=== PATIENT | male | born 1970 | race African-American/Black ===

== ENCOUNTER 2016-09-05 10:15 | Emergency (ER) | payer OTHER ==
[2016-09-05 10:15] LABS: URINE SOURCE CLEAN CATCH
[~2016-09-05 10:15] MED LIST: AMLODIPINE BESYL5 MG PO; ASPIRIN81 M2 PO; MEDI-MECLIZINE25 M1 PO; NITRIC OXIDE
[2016-09-05 10:27] LABS: URINE APPEARANCE CLEAR; URINE BILIRUBIN NEG (NEG); URINE BLOOD NEG (NEG); URINE COLOR YELLOW; URINE GLUCOSE NEG (NORM); URINE KETONE NEG (NEG); URINE LEUKOCYTE ESTERASE NEG (NEG); URINE NITRATE NEG (NEG); URINE PH 7.5 (5-8); URINE PROTEIN NEG (NEG); URINE UROBILINOGEN 0.2 MG/DL (NORM)
[2016-09-05 10:29] LABS: MICRO INDICATED? NO
[2016-09-08 15:49] LABS: CHLAMYDIA TRACH Not Detected (Not Detected); N GONOR Not Detected (Not Detected)
== END 2016-09-05 11:36 | disposition home or self-care (01) ==
LOC: SED 10:15
PROVIDERS: Emergency Medicine
DX: N34.2 Other urethritis (principal); Z79.899 Other long term (current) drug therapy; Z79.82 Long term (current) use of aspirin
CPT/HCPCS: 81003; 87491; 87591; 96372; 99283; J0696

== ENCOUNTER 2016-10-07 03:23 | Emergency (ER) | payer OTHER ==
[2016-10-07 04:17] LABS: URINE SOURCE CLEAN CATCH
[2016-10-07 04:20] LABS: URINE APPEARANCE CLEAR; URINE BILIRUBIN NEG (NEG); URINE BLOOD NEG (NEG); URINE COLOR YELLOW; URINE GLUCOSE NEG (NORM); URINE KETONE NEG (NEG); URINE LEUKOCYTE ESTERASE NEG (NEG); URINE NITRATE NEG (NEG); URINE PROTEIN NEG (NEG); URINE SPECIFIC GRAVITY <=1.005 (1.003-1.035); URINE UROBILINOGEN 0.2 MG/DL (NORM)
[2016-10-07 04:23] LABS: MICRO INDICATED? NO
== END 2016-10-07 05:00 | disposition home or self-care (01) ==
LOC: SED 03:23
PROVIDERS: Emergency Medicine
DX: R30.0 Dysuria (principal); I10 Essential (primary) hypertension; Z79.899 Other long term (current) drug therapy; Z79.82 Long term (current) use of aspirin
CPT/HCPCS: 81003; 99283

== ENCOUNTER 2017-02-06 07:48 | Emergency (ER) | payer SELFPAY ==
[~2017-02-06] VITALS: Ht 175.3 cm; Wt 84.8 kg
[2017-02-06 08:37] LABS: BASOPHIL# 0.1 X10e3 (0-0.3); BASOPHIL% 1.2 % (0-2.5); EOSINOPHIL# 0.1 X10e3 (0-0.7); EOSINOPHIL% 1.7 % (0.0-7.0); HEMATOCRIT 43.9 % (38.0-50.0); HEMOGLOBIN 14.9 gm/dL (13.0-16.0); LYMPHOCYTE# 1.1 X10e3 (1.0-3.5); LYMPHOCYTE% 20.6 % (17.0-45.0); MEAN CORPUSCULAR HEMOGLOBIN 31.6 PG (28-34); MEAN PLATELET VOLUME 8.1 FL (6.5-11.5); MONOCYTE# 0.4 X10e3 (0-1.0); MONOCYTE% 7.1 % (3.0-12.0); NEUTROPHIL# 3.8 X10e3 (1.5-7.1); NEUTROPHIL% 69.4 % (40-75); PLATELET COUNT 181 X10e3 (140-420); RED BLOOD COUNT 4.71 X10e (3.90-5.60); RED CELL DISTRIBUTION WIDTH 13.8 % (11.0-15.5); WHITE BLOOD COUNT 5.4 X10e3 (4.0-10.5)
[2017-02-06 08:40] LABS: DIFF IND NO
[2017-02-06 08:55] LABS: ALBUMIN SERUM 4.4 g/dL (3.5-5.0); BILIRUBIN, DIRECT 0.1 mg/dL (0.0-0.2); BILIRUBIN,INDIRECT 0.7 mg/dL (0.0-0.9); BILIRUBIN,TOTAL 0.8 mg/dL (0.2-2.0); BUN/CREATININE RATIO 12.14; CALCIUM SERUM 8.5 mg/dL (8.4-10.2); CREATININE SERUM 1.4 mg/dL (0.6-1.4); GLOM FILT RATE Estimated 69.9 mL/min (>60); POTASSIUM 3.9 mmol/L (3.5-5.1); PROTEIN TOTAL SERUM 7.6 g/dL (6.0-8.3)
== END 2017-02-06 09:19 | disposition home or self-care (01) ==
LOC: SED 07:48
PROVIDERS: Emergency Medicine
DX: A08.4 Viral intestinal infection, unspecified (principal); I10 Essential (primary) hypertension; Z87.891 Personal history of nicotine dependence; Z79.899 Other long term (current) drug therapy; Z79.82 Long term (current) use of aspirin
CPT/HCPCS: 36415; 80048; 80076; 82150; 83690; 85025; 96361; 96374; 96375; 99284; C9113; J2405